=== PATIENT | female | born 1980 | race Caucasian/White ===

== ENCOUNTER 2020-12-01 15:11 | Observation (INO) ==
[2020-12-01 16:55] LABS: Basophils # 0.1 K/mcL (0.0-0.2); Basophils % 0.6 %; Eosinophils % 0.4 %; Hematocrit 37.6 % (35.3-44.9); Hemoglobin 12.7 g/dL (11.5-15.4); Immature Granulocytes % 0.2 % (0-4); Lymphocytes # 1.3 K/mcL (0.6-4.6); Lymphocytes % 15.3 %; Mean Corpuscular HGB Conc 33.8 g/dL (31.6-35.5); Mean Corpuscular Hemoglobin 28.9 pg (28.0-33.3); Mean Corpuscular Volume 85.6 fL (83.0-100.0); Mean Platelet Volume 10.7 fL (9.4-12.4); Monocytes # 0.5 K/mcL (0.0-1.3); Monocytes % 5.6 %; Neutrophils # 6.6 K/mcL (1.6-8.9); Platelet Count 290 K/mcL (140-400); Red Blood Count 4.39 M/mcL (3.82-4.97); Red Cell Distribution Width 12.3 % (11.5-14.5); Segmented Neutrophils % 77.9 %; White Blood Count 8.4 K/mcL (4.3-11.1)
[2020-12-01 17:13] LABS: Alanine Aminotransferase 329 Units/L (7-52); Albumin 4.4 g/dL (3.5-5.7); Albumin/Globulin Ratio 1.6 (1.1-2.2); Alkaline Phosphatase 98 Units/L (34-104); Aspartate Amino Transferase 374 Units/L (13-39); BUN/Creatinine Ratio 20 (6-26); Bilirubin,Total 1.1 mg/dL (0.3-1.0); Blood Urea Nitrogen 14 mg/dL (6-20); Calcium 9.2 mg/dL (8.6-10.3); Carbon Dioxide 28 mEq/L (23-29); Chloride 104 mEq/L (98-107); Globulin 2.8 g/dL (2.4-3.5); Glucose 120 mg/dL (70-105); Osmolality,Calculated 292 (280-300); Potassium 3.7 mEq/L (3.5-5.1); Sodium 140 mEq/L (136-145); Total Protein 7.2 g/dL (6.4-8.9); eGFR For African Americans > 60 (> 60); eGFR For Non-African Americans > 60 (> 60)
[2020-12-01 18:03] LABS: Bilirubin,Urine Negative (Negative); Blood,Urine Negative (Negative); Clarity,Urine Cloudy (Clear); Color,Urine Yellow (Yellow); Glucose,Urine (UA) Normal (Normal); Ketones,Urine Negative (Negative); Leukocyte Esterase,Urine Negative (Negative); Nitrite,Urine Negative (Negative); PH,Urine 8.5 pH Units (5.0-8.0); Protein,Urine Trace mg/dL (Neg-Trace); Urobilinogen,Urine Normal (Normal)
[2020-12-01 18:11] LABS: Amorphous Sediment,Urine Many per hpf (None-Few); Squamous Epithelial Cell,Urine Few per hpf (None-Few); WBC,Urine 0-3 per hpf (0-3)
[2020-12-01] MEDS ORDERED: Ondansetron ODT 4 MG TAB.RAPDIS SL ONE (18:49)
[2020-12-01] MEDS ORDERED: Ketorolac 60 MG/2 ML VIAL IM ONE (18:49)
[2020-12-01] MEDS ORDERED: 0.9 % Sodium Chloride 1,000 ML IV ONE (19:41)
[2020-12-01 19:49] LABS: Amylase 29 Units/L (29-103); Lipase 27 Units/L (11-82)
[2020-12-01] MEDS ORDERED: Ondansetron 4 MG/2 ML VIAL IVP PRN ×3 (21:43→22:45)
[2020-12-01] MEDS ORDERED: Naloxone 0.4 MG/ML INJ IVP PRN ×3 (21:43→22:45)
[2020-12-01] MEDS ORDERED: Ketorolac 15 MG/ML VIAL IVP PRN (21:43)
[2020-12-01] MEDS ORDERED: Piperacillin/Tazobactam 3.375 GM in 0.9 % Sodium Chloride Mini Bag 100 ML IVPB SCH (21:45)
[2020-12-01] MEDS ORDERED: Ringers Solution, Lactated 1,000 ML IVC SCH (21:45)
[2020-12-01] MEDS ORDERED: Piperacillin/Tazobactam 3.375 GM in 0.9 % Sodium Chloride Mini Bag 100 ML IVPB ONE (22:45)
[2020-12-01] MEDS ORDERED: 0.9 % Sodium Chloride 1,000 ML IVC SCH (22:45)
[2020-12-01] MEDS: levETIRAcetam 250 MG TABLET PO SCH (23:20)
[2020-12-01] MEDS: Ringers Solution, Lactated 1,000 ML IVC SCH (23:20)
[2020-12-02] MEDS: Ringers Solution, Lactated 1,000 ML IVC SCH (06:33)
[2020-12-02] MEDS: Ketorolac 15 MG/ML VIAL IVP PRN ×2 (07:39→14:22)
[2020-12-02 07:50] LABS: Basophils % 0.6 %; Eosinophils # 0.1 K/mcL (0.0-0.6); Eosinophils % 0.9 %; Hematocrit 35.7 % (35.3-44.9); Immature Granulocytes % 0.3 % (0-4); Lymphocytes # 1.8 K/mcL (0.6-4.6); Lymphocytes % 27.8 %; Mean Corpuscular HGB Conc 33.6 g/dL (31.6-35.5); Mean Corpuscular Hemoglobin 28.8 pg (28.0-33.3); Mean Corpuscular Volume 85.8 fL (83.0-100.0); Monocytes # 0.5 K/mcL (0.0-1.3); Monocytes % 7.5 %; Platelet Count 278 K/mcL (140-400); Red Blood Count 4.16 M/mcL (3.82-4.97); Red Cell Distribution Width 12.5 % (11.5-14.5); Segmented Neutrophils % 62.9 %; White Blood Count 6.4 K/mcL (4.3-11.1)
[2020-12-02] MEDS: Piperacillin/Tazobactam 3.375 GM in 0.9 % Sodium Chloride Mini Bag 100 ML IVPB SCH ×2 (08:31→15:04)
[2020-12-02] MEDS: levETIRAcetam 250 MG TABLET PO SCH ×2 (08:31→19:50)
[2020-12-02 08:48] LABS: INR 1.1; Prothrombin Time 12.7 Seconds (9.4-12.1)
[2020-12-02 08:50] LABS: Alanine Aminotransferase 518 Units/L (7-52); Albumin 3.9 g/dL (3.5-5.7); Albumin/Globulin Ratio 1.4 (1.1-2.2); Alkaline Phosphatase 109 Units/L (34-104); Aspartate Amino Transferase 415 Units/L (13-39); BUN/Creatinine Ratio 17 (6-26); Bilirubin,Total 2.5 mg/dL (0.3-1.0); Blood Urea Nitrogen 13 mg/dL (6-20); Calcium 8.8 mg/dL (8.6-10.3); Carbon Dioxide 30 mEq/L (23-29); Chloride 106 mEq/L (98-107); Globulin 2.8 g/dL (2.4-3.5); Glucose 104 mg/dL (70-105); Magnesium 2.2 mg/dL (1.6-2.6); Osmolality,Calculated 292 (280-300); Potassium 3.8 mEq/L (3.5-5.1); Sodium 141 mEq/L (136-145); Total Protein 6.7 g/dL (6.4-8.9); eGFR For African Americans > 60 (> 60); eGFR For Non-African Americans > 60 (> 60)
[2020-12-02 14:46] VITALS: TEMP 98.2
[2020-12-02] MEDS ORDERED: Ringers Solution, Lactated 1,000 ML IVC SCH (17:30)
[2020-12-02 19:28] VITALS: BP 185/108; PULSE 73; RESP 18; O2SAT 98
== END 2020-12-02 20:04 | disposition short-term general hospital (02) ==
LOC: INPPIK 15:11 → EMEROOPIK 15:11 → INPPIK 22:00
PROVIDERS: ADMIT Student in an Organized Health Care Education/Training Program; ATTEND Student in an Organized Health Care Education/Training Program